=== PATIENT | female | born 1985 | race African-American/Black ===

== ENCOUNTER → 2017-02-07 | Outpatient (CLI) | payer OTHER ==
--- NOTE | 2017-02-08 08:41 | WOMENS IMAGING REPORT ---
EXAM DESCRIPTION: U/S BREAST UNILAT LIMITED COMPLETED DATE/TIME: 02/07/2017 8:12 am REASON FOR STUDY: GALACTORRHEA O92.6 GALACTORRHEA COMPARISON: None. TECHNIQUE: Real-time and static grayscale imaging performed of the right and left breast targeted to the area of clinical concern. Bilateral retroareolar regions were evaluated. Selected color Dopple r images recorded. LIMITATIONS: None. FINDINGS: MASS: No mass identified. Normal glandular tissue. OTHER: No other significant finding. No dilated ducts. No cysts. IMPRESSION: No suspicious findings detected by ultrasound. BIRAD: 1 Negative. RECOMMENDATION: RECOMMENDED FOLLOW-UP: Follow-up as clinically indicated. COMMENT: The [employer] (ACR) has developed recommendations for screening MRI of the breasts in certain patient populations, to be used in conjunction with mammography. Breast MRI s urveillance may be appropriate for women with more than 20% lifetime risk of developing breast cancer as determined by genetic testing, significant family history of the disease, or history of mantle r adiation for Hodgkins Disease. ACR Practice Guidelines 2008. TECHNICAL DOCUMENTATION: JOB ID: [id number] [employer]- All Rights Reserved
== END ==
LOC: WI 07:22
PROVIDERS: ATTEND Physician Assistant
DX: O92.6 Galactorrhea (principal)
CPT/HCPCS: 76642

== ENCOUNTER 2017-02-17 11:19 | Emergency (ER) | payer SELFPAY ==
--- NOTE | 2017-02-17 12:01 | ER Document Report ---
ED GI/ - General Chief Complaint: Abdominal Pain Stated Complaint: ABDOMINAL PAIN Time Seen by Provider: 02/17/17 11:47 Notes: Patient is a 31-year-old female who presents with 1 day of diffuse abdominal cramping. When she arrived to the ER, she went into the bathroom and passed a large clot from her vagina. This relieved her pain. Her menstrual period is normally very regular, but her last menstrual period was early December. She said she took a home test and was negative. Patient seeing her doctor and is getting worked up for PCOS. She denies any current pain, fevers, flank pain, nausea, vomiting, diarrhea, constipation, vaginal bleeding or discharge, rash or back pain. TRAVEL OUTSIDE OF THE [place] IN LAST 30 DAYS: No - Related Data Allergies/Adverse Reactions: No Known Allergies Allergy (Verified 02/17/17 11:21) Past Medical History - General Information source: Patient - Social History Smoking Status: Current Some Day Smoker Chew tobacco use (# tins/day): No Frequency of alcohol use: Occasional Drug Abuse: None Family History: Reviewed & Not Pertinent Patient has suicidal ideation: No Patient has homicidal ideation: No Renal/ Medical History: Denies: Hx Peritoneal Dialysis Review of Systems - Review of Systems Notes: REVIEW OF SYSTEMS: CONSTITUTIONAL: -fevers, -chills EENT: -eye pain, -difficulty swallowing, -nasal congestion CARDIOVASCULAR:-chest pain, -syncope. RESPIRATORY: -cough, -SOB GASTROINTESTINAL: +abdominal pain, -nausea, -vomiting, -diarrhea GENITOURINARY: -dysuria, -hematuria, +vaginal bleeding MUSCULOSKELETAL: -back pain, -neck pain SKIN: -rash or skin lesions. HEMATOLOGIC: -easy bruising or bleeding. LYMPHATIC: -swollen, enlarged glands. NEUROLOGICAL: -altered mental status or loss of consciousness, -headache, - neurologic symptoms PSYCHIATRIC: -anxiety, -depression. ALL OTHER SYSTEMS REVIEWED AND NEGATIVE. Physical Exam - Vital signs Vitals: Temp Pulse Resp BP Pulse Ox 98.8 F 76 24 H 148/91 H 100 02/17/17 11:23 02/17/17 11:23 02/17/17 11:23 02/17/17 11:23 02/17/17 11:23 - Notes Notes: PHYSICAL EXAMINATION: GENERAL: Well-appearing, well-nourished and in no acute distress. HEAD: Atraumatic, normocephalic. EYES: Pupils equal round and reactive to light, extraocular movements intact, sclera anicteric, conjunctiva are normal. ENT: nares patent, oropharynx clear without exudates. Moist mucous membranes. NECK: Normal range of motion, supple without lymphadenopathy LUNGS: Breath sounds clear to auscultation bilaterally and equal. No wheezes rales or rhonchi. HEART: Regular rate and rhythm without murmurs ABDOMEN: Soft, nontender, normoactive bowel sounds. No guarding, no rebound. No masses appreciated. EXTREMITIES: Normal range of motion, no pitting or edema. No cyanosis. NEUROLOGICAL: Cranial nerves grossly intact. Normal speech, normal gait. Normal sensory and motor exams. PSYCH: Normal mood, normal affect. SKIN: Warm, Dry, normal turgor, no rashes or lesions noted. Course - Re-evaluation Re-evalutation: Patient appears well. She said she passed a clot in the ER bathroom and is no longer having any active bleeding or pain. She is not . Urinalysis shows blood with 10-20 WBCs with only a trace leukocyte esterase. She is not having any dysuria, fevers or flank pain and suspect that the small amount of WBCs are reactive from her recent passage of a clot. Symptoms are not typical for ovarian torsion at this time. She has an appointment with her towel distributor this week for further evaluation and treatment. Given strict return precautions and she understands. - Vital Signs Vital signs: Temp Pulse Resp BP Pulse Ox 98.8 F 76 24 H 148/91 H 100 02/17/17 11:23 02/17/17 11:23 02/17/17 11:23 02/17/17 11:23 02/17/17 11:23 - Laboratory Laboratory results interpreted by me: 02/17/17 13:25 Urine Protein 30 H Urine Blood LARGE H Ur Leukocyte Esterase TRACE H Discharge - Discharge Clinical Impression: Vaginal bleeding Condition: Stable Disposition: HOME, SELF-CARE Additional Instructions: You are not . You may take Motrin to help with the crampiness and help stop the bleeding. Follow-up with your towel distributor. VAGINAL BLEEDING: You are having an episode of abnormal bleeding. Causes of abnormal vaginal bleeding can include miscarriage or tubal , tumors such as cancer or benign fibroids, medication effects, or hormone imbalance. Testing can eliminate unsuspected , tumors, or infection as a cause. "Dysfunctional uterine bleeding" is due to hormone imbalance, and is especially common at times when the normal cycle is disturbed -- whether by recent , use of control pills or hormones, or impending menopause. If the bleeding is innocent, most commonly a short course of hormones is given to restore the uterus to normal. Sometimes, the normal menstrual cycle corrects itself naturally. Sometimes , brief hormone therapy, or even a D&C is required. Your physician will advise you. Treatment for anemia may be required if bleeding is severe. You should rest and avoid intercourse until the bleeding is controlled. Call the doctor or return for re-examination if you feel faint, have increasing pain, or have a major increase in the amount of bleeding. FIBROIDS: Fibroids are benign growths or tumors in the uterus. They can cause enlargement of the uterus, irregular bleeding, severe bleeding with periods, and abdominal pain. Anemia may result if periods are heavy. Fibroids tend to grow until menopause, then slowly shrink. If fibroids cause severe symptoms, they can be treated surgically. Call or return if vaginal bleeding or pain becomes severe. NORMAL EXAM AND WORKUP: At this time, except for vaginal bleeding, your examination and workup show no significant abnormality. No significant abnormal physical findings were noted. All laboratory, EKG, and imaging (x-ray, CT scans, ultrasound) studies that were ordered show no significant abnormality. Although your examination and all studies that were ordered showed no significant abnormal finding, there are no examinations and no studies that are 100% accurate. There is always the possibility that some abnormality could exist and not be detected with physical examination or within the limits and capabilities of laboratory and other studies. You should return or follow up as you were instructed on your visit today for further evaluation if your symptoms do not resolve. FOLLOW-UP CARE: If you have been referred to a physician for follow-up care, call the physician s office for an appointment as you were instructed or within the next two days. If you experience worsening or a significant change in your symptoms (very heavy bleeding with large clots of blood, passage of tissue, more severe abdominal / pelvic pain or cramping, feeling faint or severe weakness, fever, etc.), notify the physician immediately or return to the Emergency Department at any time for re-evaluation. OBSTETRIC-GYNECOLOGIC (OB-SPECTRAL SCIENTIST) PHYSICIANS IN [place]: [facility] [address], [place] [phone] [facility] [address], [place] [phone] Forms: Elevated Blood Pressure Referrals: SUHA LARSEN MD [ACTIVE STAFF] - Follow up as needed
[2017-02-17 14:01] LABS: APPEARANCE,URINE CLEAR; BILIRUBIN,URINE NEGATIVE (NEGATIVE); GLUCOSE, URINE NEGATIVE (NEGATIVE); KETONES,URINE NEGATIVE (NEGATIVE); LEUKOCYTE ESTERASE,URINE TRACE (NEGATIVE); NITRITE,URINE NEGATIVE (NEGATIVE); PROTEIN,URINE 30 mg/dL (NEGATIVE); URINE SPECIFIC GRAVITY 1.023; UROBILINOGEN,URINE NEGATIVE mg/dL (<2.0)
[2017-02-17 14:03] LABS: BACTERIA,URINE 2+ /HPF; RBC,URINE TOO NUMEROUS TO CNT /HPF
[2017-02-17] MEDS ORDERED: IBUPROFEN 600 MG TABLET PO ONE (14:03)
[2017-02-17 14:19] VITALS: BP 123/80
== END 2017-02-17 14:15 | disposition home or self-care (01) ==
LOC: ER 11:19
DX: N93.9 Abnormal uterine and vaginal bleeding, unspecified (principal); R10.84 Generalized abdominal pain; F17.200 Nicotine dependence, unspecified, uncomplicated
CPT/HCPCS: 81001; 81025; 99284

== ENCOUNTER 2018-07-01 15:21 | Emergency (ER) | payer BC, OTHER ==
--- NOTE | 2018-07-01 15:58 | ER Document Report ---
ED Medical Screen (RME) - General Chief Complaint: Vaginal Bleeding Stated Complaint: VAGINAL BLEEDING Time Seen by Provider: 07/01/18 15:41 Primary Care Provider: VEDA CASAS MD [Primary Care Provider] - Follow up as needed Mode of Arrival: Ambulatory Information source: Patient Notes: 32-year-old female presented to ED for left-sided abdominal pain and vaginal bleeding. She states on March 13 through March 20 she had a normal. Then on June 07 she was spotting. On June 19 she had 2 extremely large clots and started with light bleeding. She states on the bleeding became more severe and she developed pain on the left side of her abdomen. She states that the bleeding is very heavy at this time. Patient is alert oriented respirations regular and unlabored speaking in full sentences. I have greeted and performed a rapid initial assessment of this patient. A comprehensive ED assessment and evaluation of the patient, analysis of test resu lts and completion of medical decision making process will be conducted by an additional ED providers. TRAVEL OUTSIDE OF THE [place] IN LAST 30 DAYS: No - Related Data Allergies/Adverse Reactions: No Known Allergies Allergy (Verified 07/01/18 15:23) Past Medical History Renal/ Medical History: Denies: Hx Peritoneal Dialysis Physical Exam - Vital signs Vitals: Temp Pulse Resp BP Pulse Ox 98.4 F 93 14 138/86 H 98 07/01/18 15:29 07/01/18 15:29 07/01/18 15:29 07/01/18 15:29 07/01/18 15:29 Course - Vital Signs Vital signs: Temp Pulse Resp BP Pulse Ox 98.4 F 93 14 138/86 H 98 07/01/18 15:29 07/01/18 15:29 07/01/18 15:29 07/01/18 15:29 07/01/18 15:29 Doctor's Discharge - Discharge Referrals: VEDA CASAS MD [Primary Care Provider] - Follow up as needed
[2018-07-01 16:18] LABS: ABSOLUTE EOSINOPHILS # (AUTO) 0.1 10^3/uL (0.0-0.6); ABSOLUTE LYMPHOCYTES (AUTO) 2.7 10^3/uL (0.5-4.7); ABSOLUTE MONOCYTES (AUTO) 0.7 10^3/uL (0.1-1.4); ABSOLUTE NEUT (AUTO) 5.3 10^3/uL (1.7-8.2); BASOPHILS % (AUTO) 0.4 % (0-2); HEMATOCRIT 34.9 % (36.0-47.0); HEMOGLOBIN 11.6 g/dL (12.0-15.5); LYMPHOCYTES % (AUTO) 30.8 % (13-45); MEAN CORPUSCULAR HEMOGLOBIN 26.6 pg (27.0-33.4); MEAN CORPUSCULAR HGB CONC 33.1 g/dL (32.0-36.0); MEAN CORPUSCULAR VOLUME 80 fl (80-97); MONOCYTES % (AUTO) 8.2 % (3-13); PLATELET COUNT 405 10^3/uL (150-450); RED BLOOD COUNT 4.35 10^6/uL (3.72-5.28); RED CELL DISTRIBUTION WIDTH 15.5 % (11.5-14.0); SEGMENTED NEUTROPHILS % (AUTO) 59.6 % (42-78); TOTAL CELLS COUNTED % (AUTO) 100 %; WHITE BLOOD COUNT 8.8 10^3/uL (4.0-10.5)
--- NOTE | 2018-07-01 16:28 | ER Document Report ---
ED General - General Chief Complaint: Vaginal Bleeding Stated Complaint: VAGINAL BLEEDING Time Seen by Provider: 07/01/18 15:41 Primary Care Provider: VEDA CASAS MD [Primary Care Provider] - Follow up as needed Mode of Arrival: Ambulatory Notes: 32-year-old female presented to ED for left-sided abdominal pain and vaginal bleeding. She states on March 13 through March 20 she had a normal menstrual cycle. Then on June 07 she was spotting. On June 19 she had 2 extremely large clots and started with light bleeding. She states on 06/29 the bleeding became more severe and she developed pain on the left side of her abdomen. She states that the bleeding is very heavy at this time. She denies any dizziness or lightheadedness, fevers, shortness of breath or chest pain, numbness or tingling in the extremities, no urinary symptoms, no other complaints. TRAVEL OUTSIDE OF THE [place] IN LAST 30 DAYS: No - Related Data Allergies/Adverse Reactions: No Known Allergies Allergy (Verified 07/01/18 15:23) Past Medical History - General Information source: Patient - Social History Smoking Status: Never Smoker Family History: Reviewed & Not Pertinent Patient has suicidal ideation: No Patient has homicidal ideation: No Renal/ Medical History: Denies: Hx Peritoneal Dialysis Review of Systems - Review of Systems Constitutional: See HPI EENT: No symptoms reported Cardiovascular: See HPI Respiratory: See HPI Gastrointestinal: See HPI Genitourinary: See HPI Female Genitourinary: See HPI Musculoskeletal: No symptoms reported Skin: No symptoms reported Hematologic/Lymphatic: No symptoms reported Neurological/Psychological: No symptoms reported Physical Exam - Vital signs Vitals: Temp Pulse Resp BP Pulse Ox 98.4 F 93 14 138/86 H 98 07/01/18 15:29 07/01/18 15:29 07/01/18 15:29 07/01/18 15:29 07/01/18 15:29 - Notes Notes: PHYSICAL EXAMINATION: Reviewed vital signs and charting by RN GENERAL: Alert, interacts well. No acute distress. HEAD: Normocephalic, atraumatic. EYES: Pupils equal and round. Extraocular movements intact. LUNGS: Clear to auscultation bilaterally, no wheezes, rales, or rhonchi. No respiratory distress. HEART: Regular rate and rhythm. No murmur ABDOMEN: soft, non-tender. Non-distended. Bowel sounds present. no McBurney's point tenderness, no Mares sign. EXTREMITIES: Moves all 4 extremities spontaneously. No edema, No cyanosis. Normal distal neurovascular exam BACK: No CVAT NEUROLOGIC: Oriented and appropriate. Normal speech. PSYCH: Normal affect, normal mood. SKIN: Warm, dry, normal turgor. No rashes or lesions noted. Course - Re-evaluation Re-evalutation: 07/01/18 16:28 Overall well-appearing. Blood work pending, transvaginal ultrasound ordered and pending. 07/01/18 18:24 Transvaginal ultrasound showed a 4.1 cm left ovarian cyst. No other pathology. 07/01/18 18:24 No concern for ovarian torsion or any pathologic bleed. At this time I will giv e patient referral to [facility]. Stable for discharge at this time. - Vital Signs Vital signs: Temp Pulse Resp BP Pulse Ox 98.4 F 93 14 138/86 H 98 07/01/18 15:29 07/01/18 15:29 07/01/18 15:29 07/01/18 15:29 07/01/18 15:29 - Laboratory Result Diagrams: 07/01/18 16:00 07/01/18 16:00 Laboratory results interpreted by me: 07/01/18 07/01/18 07/01/18 15:45 16:00 16:00 Hgb 11.6 L Hct 34.9 L MCH 26.6 L RDW 15.5 H Glucose 113 H Urine Blood LARGE H Discharge - Discharge Clinical Impression: Abnormal vaginal bleeding Condition: Good Disposition: HOME, SELF-CARE Instructions: Vaginal Bleeding ([facility]) Additional Instructions: You were seen today for dysfunctional uterine bleeding. This is when you have vaginal bleeding and abdominal cramping off of your normal menstrual cycle. You have been started on control pills to help regulate your cycle and control your symptoms. 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 Return immediately if you worsening pain, you began bleeding through more than 2 pads per hour for more than 3 hours, you pass out, have persistent vomiting, develop a fever greater than 100.4F, or any other symptoms that are concerning to you. Referrals: VEDA CASAS MD [Primary Care Provider] - Follow up as needed EVA RODRIGUEZ MD [ACTIVE STAFF] - Follow up as needed
[2018-07-01 16:34] LABS: ALANINE AMINOTRANSFERASE 23 U/L (9-52); ALBUMIN 3.8 g/dL (3.5-5.0); ALKALINE PHOSPHATASE 57 U/L (38-126); ANION GAP 7 (5-19); ASPARTATE AMINO TRANSFERASE 16 U/L (14-36); BILIRUBIN,DIRECT 0.2 mg/dL (0.0-0.4); BILIRUBIN,TOTAL 0.3 mg/dL (0.2-1.3); BLOOD UREA NITROGEN 11 mg/dL (7-20); CALCIUM 9.9 mg/dL (8.4-10.2); CARBON DIOXIDE 28 mmol/L (22-30); CHLORIDE 106 mmol/L (98-107); GLUCOSE 113 mg/dL (75-110); POTASSIUM 3.6 mmol/L (3.6-5.0); TOTAL PROTEIN 6.6 g/dL (6.3-8.2)
[2018-07-01 16:46] LABS: APPEARANCE,URINE SLIGHTLY-CLOUDY; BILIRUBIN,URINE NEGATIVE (NEGATIVE); COLOR,URINE YELLOW; GLUCOSE, URINE NEGATIVE (NEGATIVE); KETONES,URINE NEGATIVE (NEGATIVE); LEUKOCYTE ESTERASE,URINE NEGATIVE (NEGATIVE); NITRITE,URINE NEGATIVE (NEGATIVE); PROTEIN,URINE NEGATIVE (NEGATIVE); URINE SPECIFIC GRAVITY 1.016; UROBILINOGEN,URINE NEGATIVE mg/dL (<2.0)
--- NOTE | 2018-07-01 17:23 | RADIOLOGY REPORT (SQ) ---
EXAM DESCRIPTION: U/S NON-OB PELVIS TV W/O DOP COMPLETED DATE/TIME: 07/01/2018 5:11 pm REASON FOR STUDY: pelvic pain vaginal bleeding COMPARISON: None. TECHNIQUE: Dynamic and static grayscale images acquired of the pelvis via transvaginal approach and recorded on PACS. Additional selected color Doppler and spectral images recorded. LIMITATIONS: None. FINDINGS: UTERUS: Contour normal. No mass. ENDOMETRIAL STRIPE: No focal or generalized thickening. No masses. CERVIX: No nabothian cysts. RIGHT OVARY AND DOPPLER: Normal size. No worrisome masses. Normal arterial vascular flow without evid ence for torsion. LEFT OVARY AND DOPPLER: Normal vascular flow. 4.1 x 3.1 x 3.5 cm cyst. FREE FLUID: None noted. OTHER: No other significant finding. MEASUREMENTS: UTERUS: 11 cm ENDOMETRIAL STRIPE: 9.1 mm RIGHT OVARY: 3.8 cm LEFT OVARY: 6.7 cm IMPRESSION: 4.1 cm left ovarian cyst. Otherwise normal. COMMENT: Premenopausal Cysts US Benign-Simple cyst: ? 5 cm: no followup TECHNICAL DOCUMENTATION: JOB ID: [id number] [employer]- All Rights Reserved Rev-07/29 Reading location - IP/workstation name: [email or web address]
[2018-07-01 18:38] VITALS: BP 131/95
== END 2018-07-01 18:37 | disposition home or self-care (01) ==
LOC: ER 15:21
DX: N93.9 Abnormal uterine and vaginal bleeding, unspecified (principal); N83.202 Unspecified ovarian cyst, left side; R10.9 Unspecified abdominal pain
CPT/HCPCS: 36415; 76830; 80053; 81001; 84703; 85025; 99284

== ENCOUNTER → 2018-10-19 | Outpatient (CLI) | payer BC ==
--- NOTE | 2018-10-19 15:47 | RADIOLOGY REPORT (SQ) ---
EXAM DESCRIPTION: HYSTEROSALPINGOGRAM; HYSTERO CATH/INJECTION COMPLETED DATE/TIME: 10/19/2018 2:00 pm REASON FOR STUDY: INFERTILITY COMPARISON: None. PROCEDURE: PRE-PROCEDURE: Procedure was explained to the patient. She was told to expect cramping du ring the procedure, and possible spotting post procedure. PROCEDURE: The cervix was prepped in sterile fashion. Under direct visual inspection, the cervix was cannulated with the hysterosalpingogram catheter and contrast injected. TECHNIQUE: Temporal fluoroscopic images acquired during the procedure stored to PACS. FLUOROSCOPY TIME: LESS THAN 5 SECONDS 19 digital fluoroscopic images saved to PACS. LIMITATIONS: None. FINDINGS: UTERUS: No identified anomalies. No synechia. RIGHT ADNEXA: Normal size fallopian tube. Free spill of contrast into the peritoneal cavity. LEFT ADNEXA: Normal size fallopian tube. Free spill of contrast into the peritoneal cavity. POST PROCEDURE: The patient tolerated the procedure with no adverse effects. IMPRESSION: NORMAL HYSTEROSALPINGOGRAM. COMMENT: Study performed by and interpreted by the radiologist. Study performed by [facility]LL CONT[facility] GRINDER physician. Supervision and interpretation by the radiologist. Quality ID [id number]: Final reports for procedures using fluoroscopy that document radiation exposure arya shaw[place], or exposure time and number of fluorographic images (if radiation exposure indices are not avail able) TECHNICAL DOCUMENTATION: JOB ID: [id number] [employer]- All Rights Reserved Reading location - IP/workstation name: [email or web address]
--- NOTE | 2018-10-19 15:47 | RADIOLOGY REPORT (SQ) ---
EXAM DESCRIPTION: HYSTEROSALPINGOGRAM; HYSTERO CATH/INJECTION COMPLETED DATE/TIME: 10/19/2018 2:00 pm REASON FOR STUDY: INFERTILITY COMPARISON: None. PROCEDURE: PRE-PROCEDURE: Procedure was explained to the patient. She was told to expect cramping du ring the procedure, and possible spotting post procedure. PROCEDURE: The cervix was prepped in sterile fashion. Under direct visual inspection, the cervix was cannulated with the hysterosalpingogram catheter and contrast injected. TECHNIQUE: Temporal fluoroscopic images acquired during the procedure stored to PACS. FLUOROSCOPY TIME: LESS THAN 5 SECONDS 19 digital fluoroscopic images saved to PACS. LIMITATIONS: None. FINDINGS: UTERUS: No identified anomalies. No synechia. RIGHT ADNEXA: Normal size fallopian tube. Free spill of contrast into the peritoneal cavity. LEFT ADNEXA: Normal size fallopian tube. Free spill of contrast into the peritoneal cavity. POST PROCEDURE: The patient tolerated the procedure with no adverse effects. IMPRESSION: NORMAL HYSTEROSALPINGOGRAM. COMMENT: Study performed by and interpreted by the radiologist. Study performed by [facility] CAPTAIN physician. Supervision and interpretation by the radiologist. Quality ID 145: Final reports for procedures using fluoroscopy that document radiation exposure arya [place], or exposure time and number of fluorographic images (if radiation exposure indices are not avail able) TECHNICAL DOCUMENTATION: JOB ID: [id number] [employer]- All Rights Reserved Reading location - IP/workstation name: [email or web address]
== END ==
LOC: RAD 13:21
PROVIDERS: ATTEND Specialist
DX: N97.8 Female infertility of other origin (principal)
CPT/HCPCS: 58340; 74740

== ENCOUNTER 2018-11-13 09:03 | Emergency (ER) | payer BC ==
--- NOTE | 2018-11-13 09:47 | ER Document Report ---
ED Medical Screen (RME) - General Chief Complaint: Abdominal Pain Stated Complaint: ABDOMINAL PAIN Time Seen by Provider: 11/13/18 09:38 Primary Care Provider: RENNY BORRERO MD [Primary Care Provider] - Follow up as needed Notes: Patient is a 33-year-old female presents to the emergency department with a chief complaint of lower abdominal pain. Patient states his pain has been present for 9 days. Patient states she does have a history of ovarian cysts but this pain feels different. Patient reports she is on oral control pills for her ovarian cyst. Patient states she has followed up with Dr. Borrero at [facility] and was recently diagnosed with acute salpingitis and was placed on antibiotics on November 01. Patient states she did finish the dose of antibiotics. Patient reports she is sexually active without concern of STD. Patient states she is currently on her menstrual cycle. Patient states she has taken Midol, Tylenol and Motrin without relief of her lower abdominal p ain. Patient reports nausea without vomiting or diarrhea. TRAVEL OUTSIDE OF THE [place] IN LAST 30 DAYS: No - Related Data Allergies/Adverse Reactions: No Known Allergies Allergy (Verified 11/13/18 09:03) Past Medical History - Social History Chew tobacco use (# tins/day): No Frequency of alcohol use: Occasional Drug Abuse: None Renal/ Medical History: Denies: Hx Peritoneal Dialysis Physical Exam - Vital signs Vitals: Temp Pulse Resp BP Pulse Ox 98.4 F 95 18 130/73 H 99 11/13/18 09:10 11/13/18 09:10 11/13/18 09:10 11/13/18 09:10 11/13/18 09:10 Course - Re-evaluation Re-evalutation: 11/13/18 09:47 I have greeted and performed a rapid initial assessment of this patient. A comprehensive ED assessment and evaluation of the patient, analysis of test results and completion of the medical decision making process will be conducted by additional ED providers. - Vital Signs Vital signs: Temp Pulse Resp BP Pulse Ox 98.4 F 95 18 130/73 H 99 11/13/18 09:10 11/13/18 09:10 11/13/18 09:10 11/13/18 09:10 11/13/18 09:10 Doctor's Discharge - Discharge Referrals: RENNY BORRERO MD [Primary Care Provider] - Follow up as needed
[2018-11-13 09:50] LABS: APPEARANCE,URINE SLIGHTLY-CLOUDY; BILIRUBIN,URINE NEGATIVE (NEGATIVE); COLOR,URINE AMBER; GLUCOSE, URINE NEGATIVE (NEGATIVE); KETONES,URINE NEGATIVE (NEGATIVE); LEUKOCYTE ESTERASE,URINE NEGATIVE (NEGATIVE); NITRITE,URINE NEGATIVE (NEGATIVE); PROTEIN,URINE 30 mg/dL (NEGATIVE); URINE SPECIFIC GRAVITY 1.026; UROBILINOGEN,URINE NEGATIVE mg/dL (<2.0)
[2018-11-13 10:33] LABS: ABSOLUTE BASOPHILS # (AUTO) 0.1 10^3/uL (0.0-0.2); ABSOLUTE EOSINOPHILS # (AUTO) 0.1 10^3/uL (0.0-0.6); ABSOLUTE LYMPHOCYTES (AUTO) 2.2 10^3/uL (0.5-4.7); ABSOLUTE MONOCYTES (AUTO) 0.8 10^3/uL (0.1-1.4); ABSOLUTE NEUT (AUTO) 6.3 10^3/uL (1.7-8.2); BASOPHILS % (AUTO) 1.1 % (0-2); EOSINOPHILS % (AUTO) 0.6 % (0-6); HEMATOCRIT 30.2 % (36.0-47.0); HEMOGLOBIN 9.2 g/dL (12.0-15.5); LYMPHOCYTES % (AUTO) 23.3 % (13-45); MEAN CORPUSCULAR HEMOGLOBIN 19.5 pg (27.0-33.4); MEAN CORPUSCULAR HGB CONC 30.6 g/dL (32.0-36.0); MONOCYTES % (AUTO) 8.7 % (3-13); PLATELET COUNT 808 10^3/uL (150-450); RED BLOOD COUNT 4.73 10^6/uL (3.72-5.28); SEGMENTED NEUTROPHILS % (AUTO) 66.3 % (42-78); TOTAL CELLS COUNTED % (AUTO) 100 %; WHITE BLOOD COUNT 9.4 10^3/uL (4.0-10.5)
[2018-11-13 10:36] LABS: MEAN CORPUSCULAR VOLUME 64 fl (80-97)
[2018-11-13 10:58] LABS: ALBUMIN 3.6 g/dL (3.5-5.0); ALKALINE PHOSPHATASE 69 U/L (38-126); ANION GAP 9 (5-19); ASPARTATE AMINO TRANSFERASE 17 U/L (14-36); BILIRUBIN,DIRECT 0.3 mg/dL (0.0-0.4); BILIRUBIN,TOTAL 0.5 mg/dL (0.2-1.3); BLOOD UREA NITROGEN 12 mg/dL (7-20); CALCIUM 9.5 mg/dL (8.4-10.2); CARBON DIOXIDE 26 mmol/L (22-30); CHLORIDE 105 mmol/L (98-107); GLUCOSE 99 mg/dL (75-110); TOTAL PROTEIN 6.7 g/dL (6.3-8.2)
[2018-11-13 11:03] LABS: ANISOCYTOSIS 2+; HYPOCHROMASIA 2+; OVALOCYTES 2+; POIKILOCYTOSIS 2+
[2018-11-13 11:04] LABS: PLATELET COMMENT INCREASED; TEAR DROP CELLS 1+
--- NOTE | 2018-11-13 11:29 | RADIOLOGY REPORT (SQ) ---
EXAM DESCRIPTION: U/S NON OB PEL TV W/DOPPLER COMPLETED DATE/TIME: 11/13/2018 11:19 am REASON FOR STUDY: pelvic pain, hx. ovarian cysts COMPARISON: 07/01/2018. TECHNIQUE: Dynamic and static grayscale images acquired of the pelvis via transvaginal approach and recorded on PACS. Additional selected color Doppler and spectral images recorded. LIMITATIONS: None. FINDINGS: UTERUS: Contour normal. No mass. ENDOMETRIAL STRIPE: No focal or generalized thickening. No masses. CERVIX: Nabothian cysts. RIGHT OVARY AND DOPPLER: Normal size. 3 cm cyst. No worrisome masses. Normal arterial vascular flow without evidence for torsion. LEFT OVARY AND DOPPLER: Normal size. 5 cm cystic lesion with dilated fluid-filled tubular structure extending from the and next to the uterus. Normal arterial vascular flow without evidence for torsio n. FREE FLUID: None noted. OTHER: No other significant finding. MEASUREMENTS: UTERUS: 4.4 x 6.3 x 10.5 cm. ENDOMETRIAL STRIPE: 1.5 cm. RIGHT OVARY: 3.2 x 3.9 x 4.9 cm. LEFT OVARY: 4.1 x 4.3 x 5.6 cm. IMPRESSION: 1. LEFT SIDE HYDROSALPINX. 5 CM LEFT OVARIAN CYST. 2. 3 CM RIGHT OVARIAN CYST. TECHNICAL DOCUMENTATION: JOB ID: [id number] [employer]- All Rights Reserved Rev-07/29 Reading location - IP/workstation name: [email or web address]
[2018-11-13 12:04] LABS: BACTERIA (WET MOUNT) 3+ BACTERIA SEEN; EPITHELIALS (WET MOUNT) 3+ EPITHELIALS SEEN; RBCS (WET MOUNT) 2+ RBCS SEEN; T.VAGINALIS (WET MOUNT) NO TRICHOMONAS SEEN; WBCS (WET MOUNT) 1+ WBCS SEEN; YEAST (WET MOUNT) NO YEAST SEEN
--- NOTE | 2018-11-13 12:08 | ER Document Report ---
ED General - General Chief Complaint: Abdominal Pain Stated Complaint: ABDOMINAL PAIN Time Seen by Provider: 11/13/18 09:38 Primary Care Provider: RENNY BORRERO MD [ACTIVE STAFF] - Follow up as needed TRAVEL OUTSIDE OF THE [place] IN LAST 30 DAYS: No - HPI Notes: Patient is a 33-year-old female presents emergency department for evaluation. She complains of pelvic pain. She states is been an intermittent issue for some time, but it is been worse over the last 9 days. She has a constant dull ache with occasional sharp and stabbing pains. Nothing seems to make it better or worse. She is currently menstruating. She has been dealing with ovarian cysts, and was diagnosed with salpingitis at one point. She states originally ovarian cysts were found, and in follow-up her hotel operations manager said that her tube looked "blocked." She underwent hysterosalpingogram which was found to be normal. She was subsequently treated for salpingitis, although the patient is unsure as to what antibiotic she received. She states that the pain she has right now is worse than what she is had with her cyst in the past. She denies any vaginal discharge. She states she is not concerned about the possibility of sexually transmitted disease, although she admits she has not had a pelvic exam to screen for anything other than cervical cancer since June. No vaginal discharge. No external sores. No fevers or chills, no nausea or vomiting, no urinary symptoms. - Related Data Allergies/Adverse Reactions: No Known Allergies Allergy (Verified 11/13/18 09:03) Home Medications: OCPs, metformin Past Medical History - General Information source: Patient - Social History Smoking Status: Never Smoker Chew tobacco use (# tins/day): No Frequency of alcohol use: Occasional Drug Abuse: None Family History: Reviewed & Not Pertinent Patient has suicidal ideation: No Patient has homicidal ideation: No Renal/ Medical History: Reports: Hx Ovarian Cysts - PCOS. Denies: Hx Peritoneal Dialysis Review of Systems - Review of Systems Constitutional: No symptoms reported EENT: No symptoms reported Cardiovascular: No symptoms reported Respiratory: No symptoms reported Gastrointestinal: No symptoms reported Genitourinary: No symptoms reported Female Genitourinary: See HPI Musculoskeletal: No symptoms reported Hematologic/Lymphatic: No symptoms reported Physical Exam - Vital signs Vitals: Temp Pulse Resp BP Pulse Ox 98.4 F 95 18 130/73 H 99 09/02/19 09:10 11/13/18 09:10 11/13/18 09:10 11/13/18 09:10 11/13/18 09:10 - Notes Notes: Vital signs reviewed, please refer to chart. Head is normocephalic, atraumatic. Pupils equal round, reactive to light. Neck is supple without meningismus. Heart is regular rate and rhythm. Lungs are clear to auscultation bilaterally. Abdomen is soft, nontender, normoactive bowel sounds throughout. Extremities without cyanosis, clubbing. Posterior calves are nontender. Peripheral pulses are equal. Skin is warm and dry. Patient is awake, alert, neurological exam is nonfocal. DALE Wan was present for pelvic exam. External genitalia is within normal limits. No active lesions that I could appreciate. Speculum exam performed. She had a moderate amount of blood in the vaginal vault. Cervix is nonfriable, no significant discharge, no cervical motion tenderness. Specimens obtained. Course - Re-evaluation Re-evalutation: 11/13/18 12:47 Patient presents emergency department for evaluation. She has had a convoluted gynecological history over the last several months. Her laboratory investigations are unremarkable. Wet prep is negative. GC and Chlamydia are still pending. I spoke with Dr. Hanks, KNITTING TEACHER on-call, regarding ultrasound results. She states that it sounds as if the patient will require surgery at some point, but certainly does not believe that this needs to be done necessarily urgently. I did discuss the possibility of treatment with antibiotics. She states that in the absence of any positive findings on GC chlamydia/trichomonas/wet prep testing, she does not think that they are indicated. I will then send the patient home with prescription strength anti- inflammatories and a short course of [place]. She is to follow-up with the hotel operations manager office tomorrow. She is to return to the ED with worsening or new concerning symptoms of any sort. - Vital Signs Vital signs: Temp Pulse Resp BP Pulse Ox 98.4 F 95 18 130/73 H 99 11/13/18 09:10 11/13/18 09:10 11/13/18 09:10 11/13/18 09:10 11/13/18 09:10 - Laboratory Result Diagrams: 11/13/18 10:17 11/13/18 10:17 Laboratory results interpreted by me: 11/13/18 11/13/18 09:35 10:17 Hgb 9.2 L Hct 30.2 L MCV 64 L MCH 19.5 L MCHC 30.6 L RDW 19.0 H Plt Count 808 H Urine Protein 30 H Urine Blood MODERATE H - Diagnostic Test Radiology reviewed: Reports reviewed Radiology results interpreted by me: 11/13/18 12:07 Transvaginal US 11/13/18 09:44 IMPRESSION: 1. LEFT SIDE HYDROSALPINX. 5 CM LEFT OVARIAN CYST. 2. 3 CM RIGHT OVARIAN CYST. Discharge - Discharge Clinical Impression: Hydrosalpinx, Bilateral ovarian cysts Condition: Stable Disposition: HOME, SELF-CARE Instructions: Pelvic Pain ([facility]), Ovarian Cyst ([facility]) Additional Instructions: Follow-up with your hotel operations manager office tomorrow. Take medications as prescribed for pain. Return to the emergency department with worsening or new concerning symptoms of any sort. Referrals: RENNY BORRERO MD [ACTIVE STAFF] - Follow up as needed
[2018-11-13 13:11] VITALS: BP 127/70
[2018-11-13 13:28] LABS: CHLAM PCR NOT DETECTED (NOT DETECT)
[2018-11-14 16:42] LABS: PATH REVIEW PATHOLOGIST REVIEWED
== END 2018-11-13 13:12 | disposition home or self-care (01) ==
LOC: ER 09:03
DX: N83.202 Unspecified ovarian cyst, left side (principal); N83.201 Unspecified ovarian cyst, right side; N70.11 Chronic salpingitis; R10.9 Unspecified abdominal pain; R10.2 Pelvic and perineal pain
CPT/HCPCS: 36415; 76830; 80053; 81001; 81025; 85025; 87210; 87491; 87591; 93976; 99284

== ENCOUNTER 2019-10-30 16:29 | Emergency (ER) | payer BC ==
--- NOTE | 2019-10-30 17:30 | ER Document Report ---
ED Medical Screen (RME) - General Chief Complaint: Arm Pain Stated Complaint: LEFT ARM PAIN Time Seen by Provider: 10/30/19 17:26 Primary Care Provider: LIBRADO THOMPSON PA-C [Primary Care Provider] - Follow up as needed Information source: Patient Notes: HPI; 34-year-old female history of prediabetes presents to the emergency room complaining of intermittent sharp midsternal chest pain off and on for the past 2 months. States it has been getting progressively worse for the past 2 to 3 days. Is now having numbness into her left arm which she states starts at the lower part of her neck and radiates into her left arm. Denies any trauma or injury. States has tried taking some leftover Flexeril and naproxen without relief. Denies any nausea, vomiting. No medications today for symptoms. PE: Alert and oriented x3. Negative fast exam. Healthcare Business Analyst strength equal and adequate bilaterally. Full sensation to left arm. There is pain and muscle spasms noted to the left trapezius muscle. Chest nontender to palpation. Lungs: Clear to auscultation without rales, rhonchi, wheezes. Heart: Regular rate rhythm without murmurs, rubs, gallops. I have greeted and performed a rapid initial assessment of this patient. A comprehensive ED assessment and evaluation of the patient, analysis of test results and completion of the medical decision making process will be conducted by additional ED providers. I have specifically instructed the patient or family members with the patient to immediately return to any nursing staff should anything change in the patient's condition or with their chief complaint. TRAVEL OUTSIDE OF THE [place] IN LAST 30 DAYS: No - Related Data Allergies/Adverse Reactions: No Known Allergies Allergy (Verified 10/30/19 17:22) Home Medications: metformin, ferrous sulfate, oral BCP Past Medical History - Social History Chew tobacco use (# tins/day): No Frequency of alcohol use: Occasional Drug Abuse: None Endocrine Medical History: Reports: Hx Diabetes Mellitus Type 2 - pre DM Renal/ Medical History: Reports: Hx Ovarian Cysts - PCOS. Denies: Hx Peritoneal Dialysis Physical Exam - Vital signs Vitals: Temp Pulse Resp BP Pulse Ox 98.6 F 98 18 136/83 H 100 10/30/19 16:52 10/30/19 16:52 10/30/19 16:52 10/30/19 16:52 10/30/19 16:52 Course - Vital Signs Vital signs: Temp Pulse Resp BP Pulse Ox 98.6 F 98 18 136/83 H 100 10/30/19 16:52 10/30/19 16:52 10/30/19 16:52 10/30/19 16:52 10/30/19 16:52 Doctor's Discharge - Discharge Referrals: LIBRADO THOMPSON PA-C [Primary Care Provider] - Follow up as needed
--- NOTE | 2019-10-30 17:57 | RADIOLOGY REPORT (SQ) ---
EXAM DESCRIPTION: CHEST 2 VIEWS IMAGES COMPLETED DATE/TIME: 10/30/2019 5:45 pm REASON FOR STUDY: chest pain COMPARISON: None. EXAM PARAMETERS: NUMBER OF VIEWS: two views TECHNIQUE: Digital Frontal and Lateral radiographic views of the chest acquired. RADIATION DOSE: NA LIMITATIONS: none FINDINGS: LUNGS AND PLEURA: No opacities, masses or pneumothorax. No pleural effusion. MEDIASTINUM AND HILAR STRUCTURES: No masses or contour abnormalities. HEART AND VASCULAR STRUCTURES: Heart normal size. No evidence for failure. BONES: No acute findings. HARDWARE: None in the chest. OTHER: No other significant finding. IMPRESSION: NO ACUTE RADIOGRAPHIC FINDING IN THE CHEST. TECHNICAL DOCUMENTATION: JOB ID: [id number] 2010 [employer]- All Rights Reserved Reading location - IP/workstation name: [email or web address]
--- NOTE | 2019-10-30 18:18 | RADIOLOGY REPORT (SQ) ---
EXAM DESCRIPTION: CT CERVICAL SPINE WITHOUT IMAGES COMPLETED DATE/TIME: 10/30/2019 5:53 pm REASON FOR STUDY: Left arm numbness COMPARISON: None. TECHNIQUE: Axial images acquired through the cervical spine without intravenous contrast. Images re viewed with lung, soft tissue and bone windows. Reconstructed coronal and sagittal MPR images review ed. Images stored on PACS. All CT scanners at this facility use dose modulation, iterative reconstruction, and/or weight based d osing when appropriate to reduce radiation dose to as low as reasonably achievable (ALARA). [facility]: Dose Right [facility]: CareDose [facility]: Dose Right [facility]: Teradose 4D [facility]: [employer] RADIATION DOSE: CT Rad equipment meets quality standard of care and radiation dose reduction techniq ues were employed. CTDIvol: 23.6 mGy. DLP: 506 mGy-cm. mGy. LIMITATIONS: None. FINDINGS: ALIGNMENT: Anatomic. MINERALIZATION: Normal. VERTEBRAL BODIES: No fractures or dislocation. DISCS: Mild disc narrowing at C6-7 with small marginal osteophytes. FACETS, LATERAL MASSES, POSTERIOR ELEMENTS: No fractures. No dislocation. No acute findings. HARDWARE: None in the spine. VISUALIZED RIBS: No fractures. LUNG APICES AND SOFT TISSUES: No significant or acute findings. OTHER: No other significant finding. IMPRESSION: Limited degenerative disc changes and spondylosis. No acute finding. TECHNICAL DOCUMENTATION: JOB ID: [id number] Quality ID # [id number]: Final reports with documentation of one or more dose reduction techniques (e.g., Au tomated exposure control, adjustment of the mA and/or kV according to patient size, use of iterative reconstruction technique) 2010 [employer]- All Rights Reserved Reading location - IP/workstation name: [email or web address]
[2019-10-30 18:29] LABS: ABSOLUTE EOSINOPHILS # (AUTO) 0.1 10^3/uL (0.0-0.6); ABSOLUTE LYMPHOCYTES (AUTO) 3.2 10^3/uL (0.5-4.7); ABSOLUTE MONOCYTES (AUTO) 0.6 10^3/uL (0.1-1.4); ABSOLUTE NEUT (AUTO) 6.5 10^3/uL (1.7-8.2); BASOPHILS % (AUTO) 0.2 % (0-2); HEMATOCRIT 40.5 % (36.0-47.0); HEMOGLOBIN 13.5 g/dL (12.0-15.5); LYMPHOCYTES % (AUTO) 30.5 % (13-45); MEAN CORPUSCULAR HEMOGLOBIN 27.7 pg (27.0-33.4); MEAN CORPUSCULAR HGB CONC 33.4 g/dL (32.0-36.0); MEAN CORPUSCULAR VOLUME 83 fl (80-97); MONOCYTES % (AUTO) 5.7 % (3-13); PLATELET COUNT 412 10^3/uL (150-450); RED BLOOD COUNT 4.89 10^6/uL (3.72-5.28); SEGMENTED NEUTROPHILS % (AUTO) 62.6 % (42-78); TOTAL CELLS COUNTED % (AUTO) 100 %; WHITE BLOOD COUNT 10.3 10^3/uL (4.0-10.5)
[2019-10-30 18:46] LABS: ALBUMIN 3.9 g/dL (3.5-5.0); ALKALINE PHOSPHATASE 51 U/L (38-126); ANION GAP 9 (5-19); ASPARTATE AMINO TRANSFERASE 28 U/L (14-36); BILIRUBIN,TOTAL 0.5 mg/dL (0.2-1.3); BLOOD UREA NITROGEN 11 mg/dL (7-20); CALCIUM 9.5 mg/dL (8.4-10.2); CARBON DIOXIDE 27 mmol/L (22-30); CHLORIDE 104 mmol/L (98-107); CREATINE KINASE 102 U/L (30-135); GLUCOSE 129 mg/dL (75-110); TOTAL PROTEIN 6.8 g/dL (6.3-8.2)
[2019-10-30 19:05] LABS: CREATINE KINASE MB 0.25 ng/mL (<4.55)
[2019-10-30 19:09] LABS: TROPONIN I < 0.012 ng/mL
--- NOTE | 2019-10-30 19:31 | EKG REPORT ---
SEVERITY:- NORMAL ECG - SINUS RHYTHM : Confirmed by: Jodi Montalvo 30-Oct-2019 19:30:59
[2019-10-30 21:41] VITALS: BP 130/80
[2019-10-30] MEDS ORDERED: KETOROLAC TROMETHAMINE 60 MG/2 ML SDV IM ONE (22:08)
--- NOTE | 2019-10-30 22:08 | ER Document Report ---
ED General - General Chief Complaint: Arm Pain Stated Complaint: LEFT ARM PAIN Time Seen by Provider: 10/30/19 17:26 Primary Care Provider: LIBRADO THOMPSON PA-C [Primary Care Provider] - Follow up as needed Notes: CHIEF COMPLAINT: Neck and arm pain for 3 days, intermittent chest pain HPI: 34-year-old female primarily presenting tonight for 3 days of intermittent neck and arm pain. Hurts to lift the arms or rotate the head and neck. Pain starts in the cervical neck region radiates through the bilateral trapezius region but more on the left and occasionally down the left arm especially with movement of the head to the left or elevation of the left arm. Has taken no medications for symptoms denies acute trauma. Patient also relates that she has had intermittent midsternal type chest discomfort that she is vague in her description of that seems to come and go for several minutes at a time most recently was 2 weeks ago but states over the last several weeks she has noticed that so her mother wanted her to come in tonight as well for that to be evaluated. Does not have any chest discomfort tonight ROS: See HPI - all other systems were reviewed and are otherwise negative Constitutional: no fever Eyes: no drainage, no blurred vision ENT: no runny nose, no sore throat Cardiovascular: Positive chest pain Resp: no SOB, no cough GI: no vomiting, no diarrhea, no abdominal pain : no dysuria Integumentary: no rash Allergy: no hives Musculoskeletal: Positive extremity pain or swelling Neurological: no numbness/tingling, no weakness MEDICATIONS: I agree with the patient medications as charted by the RN. ALLERGIES: I agree with the allergies as charted by the RN. PAST MEDICAL HISTORY/PAST SURGICAL HISTORY: Reviewed and agree as charted by RN. SOCIAL HISTORY: Reviewed and agree as charted by RN. FAMILY HISTORY: No significant familial comorbid conditions directly related to patient complaint EXAM: Reviewed vital signs as charted by RN. CONSTITUTIONAL: Alert and oriented and responds appropriately to questions. Well-appearing; well-nourished HEAD: Normocephalic; atraumatic EYES: PERRL; Conjunctivae clear, sclerae non-icteric ENT: normal nose; no rhinorrhea; moist mucous membranes; pharynx without lesions noted, no uvula edema or deviation, no tonsillar hypertrophy, phonation normal NECK: Supple without meningismus; tenderness in the cervical paraspinous musculature bilaterally more prominent in the left trapezius region; no cervical lymphadenopathy, no masses CARD: RRR; no murmurs, no clicks, no rubs, no gallops; symmetric distal pulses RESP: Normal chest excursion without splinting or tachypnea; breath sounds clear and equal bilaterally; no wheezes, no rhonchi, no rales, pulse oximetry 99% on room air not hypoxic ABD/GI: Normal bowel sounds; non-distended; soft, non-tender, no rebound, no guarding; no palpable organomegaly or masses. BACK: The back appears normal and is non-tender to palpation, there is no CVA tenderness EXT: Normal ROM in all joints; non-tender to palpation; no cyanosis, no effusions, no edema SKIN: Normal color for age and race; warm; dry; good turgor; no acute lesions noted NEURO: Moves all extremities equally; Motor and sensory function intact. Strength equal 5/5 bilateral upper extremities. Sensation intact and equal bilateral upper extremities. PSYCH: The patient's mood and manner are appropriate. Grooming and personal hygi martina are appropriate. MDM: 34-year-old female presenting for cervical radiculopathy over the last [address] on anti-inflammatories and a muscle relaxer. Refer to orthopedics. She has had intermittent chest discomfort that she is vague in her description of over the last 1 to 2 months, has not had the discomfort in several weeks. Her initial screening labs ordered in the triage process were negative for acute findings. Her EKG is normal sinus rhythm with a ventricular rate of 94 with a ND of 148. Interpreted by emergency department physicians, no other ectopy. Will refer for outpatient cardiology evaluation TRAVEL OUTSIDE OF THE [place] IN LAST 30 DAYS: No - Related Data Allergies/Adverse Reactions: No Known Allergies Allergy (Verified 10/30/19 17:22) Home Medications: metformin, ferrous sulfate, oral BCP Past Medical History - General Information source: Patient - Social History Smoking Status: Never Smoker Chew tobacco use (# tins/day): No Frequency of alcohol use: Occasional Drug Abuse: None Family History: Reviewed & Not Pertinent Patient has homicidal ideation: No Endocrine Medical History: Reports: Hx Diabetes Mellitus Type 2 - pre DM Renal/ Medical History: Reports: Hx Ovarian Cysts - PCOS. Denies: Hx Peritoneal Dialysis Physical Exam - Vital signs Vitals: Temp Pulse Resp BP Pulse Ox 98.6 F 98 18 136/83 H 100 10/30/19 16:52 10/30/19 16:52 10/30/19 16:52 10/30/19 16:52 10/30/19 16:52 Course - Vital Signs Vital signs: Temp Pulse Resp BP Pulse Ox 98.4 F 86 18 130/80 H 100 10/30/19 21:36 10/30/19 21:36 10/30/19 16:52 10/30/19 21:36 10/30/19 21:36 - Laboratory Result Diagrams: 10/30/19 18:10 10/30/19 18:10 Laboratory results interpreted by me: 10/30/19 18:10 Glucose 129 H Discharge - Discharge Clinical Impression: Cervical radicular pain Chest pain Qualifiers: Chest pain type: unspecified Qualified Code(s): R07.9 - Chest pain, unspecified Condition: Stable Disposition: HOME, SELF-CARE Instructions: Radiculopathy ([facility]), Chest Pain of Unclear Cause ([facility]) Additional Instructions: Take the medications as prescribed no driving if taking muscle relaxers. F ollow-up with orthopedics regarding the pinched nerve in the neck. Follow-up with cardiology for outpatient stress test for evaluation of the chest discomfort you have been having in the last few weeks. If you develop worsening or more persistent chest pain return for reevaluation but your lab work evaluation tonight did not show acute abnormalities Prescriptions: Cyclobenzaprine HCl [Flexeril 10 mg Tablet] 10 mg PO TIDP PRN #15 tab PRN Reason: Diclofenac Sodium [Voltaren 50 Mg Tablet.] 50 mg PO BID #20 tablet. Referrals: LIBRADO THOMPSON PA-C [Primary Care Provider] - Follow up as needed MICHAEL OLIVIA MD [ACTIVE STAFF] - Follow up as needed LARON IRWIN MD [ACTIVE STAFF] - Follow up as needed
== END 2019-10-30 22:20 | disposition home or self-care (01) ==
LOC: ER 16:29
DX: M54.12 Radiculopathy, cervical region (principal); R07.9 Chest pain, unspecified; M79.602 Pain in left arm; M54.2 Cervicalgia; M54.6 Pain in thoracic spine; E11.9 Type 2 diabetes mellitus without complications
CPT/HCPCS: 93005; 99285; 96372; 36415; 82553; 82550; 84703; 85025; 80053; 84484; 71046; 72125; 93010; J1885

== ENCOUNTER 2020-02-23 16:58 | Emergency (ER) | payer SELFPAY ==
[2020-02-23] MEDS ORDERED: KETOROLAC TROMETHAMINE 60 MG/2 ML SDV IM ONE (17:39)
--- NOTE | 2020-02-23 17:47 | ER Document Report ---
ED Extremity Problem, Upper - General Chief Complaint: Shoulder Pain Stated Complaint: SHOULDER PAIN,ARM PAIN Time Seen by Provider: 02/23/20 17:35 Primary Care Provider: ROBERTH KURTZ MD [ACTIVE STAFF] - Follow up as needed LIBRADO THOMPSON PA-C [PHYSICIAN AIR BATTLE MANAGER] - Follow up as needed TRAVEL OUTSIDE OF THE [place] IN LAST 30 DAYS: No - HPI Notes: Patient is a 34-year-old female with no medical history who presents with left cervical radiculopathy and shoulder pain. Patient was seen back in October and diagnosed with cervical radiculopathy. She was treated with muscle relaxers and NSAIDs which she states helped her pain. She states her pain returned last night and she is requesting pain relief. She denies any injury or new pain. She was recommended to follow-up with orthopedics for further evaluation back in October but has not followed up due to lack of insurance. She denies any chest pain, shortness of breath, and vomiting. - Related Data Allergies/Adverse Reactions: No Known Allergies Allergy (Verified 10/30/19 17:22) Past Medical History - General Information source: Patient - Social History Smoking Status: Unknown if Ever Smoked Family History: Reviewed & Not Pertinent Endocrine Medical History: Reports: Hx Diabetes Mellitus Type 2 - pre DM Renal/ Medical History: Reports: Hx Ovarian Cysts - PCOS. Denies: Hx Bijal toneal Dialysis Review of Systems - Review of Systems Constitutional: No symptoms reported EENT: No symptoms reported Cardiovascular: No symptoms reported Respiratory: No symptoms reported Gastrointestinal: No symptoms reported Genitourinary: No symptoms reported Female Genitourinary: No symptoms reported Musculoskeletal: See HPI Skin: No symptoms reported Hematologic/Lymphatic: No symptoms reported Neurological/Psychological: No symptoms reported Physical Exam - Vital signs Vitals: Temp Pulse Resp BP Pulse Ox 98.1 F 104 H 20 149/108 H 99 02/23/20 17:26 02/23/20 17:26 02/23/20 17:26 02/23/20 17:26 02/23/20 17:26 - Notes Notes: PHYSICAL EXAMINATION: VITALS: Vitals reviewed and within normal limits. GENERAL: Well-appearing, well-nourished and in no acute distress. HEAD: Atraumatic, normocephalic. NECK: Normal range of motion, supple without lymphadenopathy. No midline tenderness. Tenderness in the cervical paraspinous musculature bilaterally more prominent in the left trapezius region. LUNGS: Breath sounds clear to auscultation bilaterally and equal. No wheezes, rales, or rhonchi. HEART: Regular, rate, and rhythm without murmurs. EXTREMITIES: Left shoulder is nontender. Normal range of motion, no pitting or edema. No cyanosis. BACK: No midline tenderness. Able to ambulate without difficulty. NEUROLOGICAL: No focal neurological deficits. Moves all extremities spontaneously and on command. PSYCH: Normal mood, normal affect. SKIN: Warm, Dry, normal turgor, no rashes or lesions noted. Course - Re-evaluation Re-evalutation: Patient presents with signs and symptoms most consistent with a cervical nerve root impingement likely at C6-7. Patient presents with pain into the shoulder, neck, and radiation of pain into the extremity. On neurologic exam patient has 5 out of 5 biceps and triceps strength. Motor and sensory distribution incl uding against resistance on motor testing is noted to be normal. 2+ radial pulse and capillary refill is less than 1 second in all digits. Patient has had improvement of symptoms after receiving analgesia here in the emergency department. Advised supportive pillow for sleep at night, have treated with NSAIDs, and muscle relaxers at night for pain that prevents sleep. At this time will discharge with return precautions and follow-up recommendations. Verbal discharge instructions given a the bedside and opportunity for questions given. Medication warnings reviewed. Patient is in agreement with this plan and has verbalized understanding of return precautions and the need for primary care follow-up in the next 24-72 hours. - Vital Signs Vital signs: Temp Pulse Resp BP Pulse Ox 98.7 F 70 20 138/76 H 100 02/23/20 18:08 02/23/20 18:08 02/23/20 18:08 02/23/20 18:08 02/23/20 18:08 - Laboratory Results Critical Laboratory Results Reviewed: No Critical Results - Radiology Results Critical Radiology Results Reviewed: No Critical Results Discharge - Discharge Clinical Impression: Cervical radiculopathy Left shoulder pain Qualifiers: Chronicity: chronic Qualified Code(s): M25.512 - Pain in left shoulder Condition: Stable Disposition: HOME, SELF-CARE Additional Instructions: Radiculopathy Radiculopathy is irritation of a nerve. Sometimes this is called "pinched nerve." The pain can be sharp and stabbing, constant and dull, or burning in nature. The pain can occur in any area of the chest, shoulders, or arms. Sometimes the pain is provoked by coughing or moving. Radiculopathy can be caused by physical pressure on a nerve, such as a herniated disc or swollen joint in the spine. It can also be caused by viral infections within the nerve or by nerve damage due to diabetes or blood vessel disease. Radicular pain is treated with antiinflammatory medicine. Injections may help resistant cases, if we can identify a single nerve that's causing the pain. Surgery is usually not necessary. If symptoms do not improve with time, you may need additional testing, such as an MRI or EMG (electromyogram). Return if there is local weakness or numbness, shortness of breath, increasing pain, or other new symptoms. Your pain is related to impingement one of your cervical nerve roots and will take 6-8 weeks completely resolved. For your pain: Take ibuprofen 600 mg and acetaminophen 1000 mg every 6 hours together as needed for pain. In addition to this, purchased the product that is sold [id number] cold Aspercreme with lidocaine. Apply to the affected area per bottle instructions. You should also apply heat to the area regularly using an electric heating plant pad. Return to the emergency department immediately if you develop weakness, loss of sensation, chest pain, shortness of breath, have worsening of your symptoms, or any other symptoms that are worrisome to you. Prescriptions: Cyclobenzaprine HCl [Flexeril 10 mg Tablet] 10 mg PO TID PRN #15 tablet PRN Reason: Diclofenac Sodium [Voltaren 50 mg Tablet.] 50 mg PO BID PRN #20 tablet. PRN Reason: Forms: Return to Work Referrals: LIBRADO THOMPSON PA-C [PHYSICIAN AIR BATTLE MANAGER] - Follow up as needed ROBERTH KURTZ MD [ACTIVE STAFF] - Follow up as needed
[2020-02-23 18:09] VITALS: BP 138/76
== END 2020-02-23 18:08 | disposition home or self-care (01) ==
LOC: ER 16:58
DX: G89.29 Other chronic pain (principal); M25.512 Pain in left shoulder; M54.12 Radiculopathy, cervical region
CPT/HCPCS: 99284; 96372; J1885

== ENCOUNTER 2020-02-23 22:13 | Emergency (ER) | payer SELFPAY ==
[2020-02-23] MEDS ORDERED: DEXAMETHASONE SOD PHOS INJ 10 MG/1 ML VIAL IM ONE (23:44)
[2020-02-23] MEDS ORDERED: OXYCODONE-ACETAMINOPHEN 5-325 MG TABLET PO ONE (23:44)
--- NOTE | 2020-02-23 23:50 | ER Document Report ---
ED Extremity Problem, Upper - General Chief Complaint: Shoulder Pain Stated Complaint: BILATERAL SHOULDER/ARM PAIN Time Seen by Provider: 02/23/20 23:28 Primary Care Provider: ROBERTH KURTZ MD [ACTIVE STAFF] - Follow up as needed STEFFI OG DO [ACTIVE STAFF] - Follow up as needed TRAVEL OUTSIDE OF THE [place] IN LAST 30 DAYS: No - HPI Notes: Patient is a 34-year-old female with no medical history who presents with bilateral cervical radiculopathy and shoulder pain, left greater than right. She was seen in the ED earlier today and was given 60mg IM toradol and prescript ions for flexeril and voltaren as these medications have worked for her in the past. Patient has returned to the ED as she was unable to pepper picker her prescriptions before the pharmacy closed and she is in too much pain to sleep tonight. She denies any new injury. She denies any chest pain, shortness of breath, and vomiting. - Related Data Allergies/Adverse Reactions: No Known Allergies Allergy (Verified 10/30/19 17:22) Past Medical History - General Information source: Patient - Social History Smoking Status: Never Smoker Chew tobacco use (# tins/day): No Frequency of alcohol use: None Drug Abuse: None Family History: Reviewed & Not Pertinent Endocrine Medical History: Reports: Hx Diabetes Mellitus Type 2 - pre DM Renal/ Medical History: Reports: Hx Ovarian Cysts - PCOS. Denies: Hx Peritoneal Dialysis Physical Exam - Vital signs Vitals: Temp Pulse Resp BP Pulse Ox 98.2 F 111 H 16 151/95 H 100 02/23/20 22:18 02/23/20 22:18 02/23/20 22:18 02/23/20 22:18 02/23/20 22:18 - Notes Notes: PHYSICAL EXAMINATION: VITALS: Vitals reviewed and within normal limits. GENERAL: Well-appearing, well-nourished. Patient is tearful and appears to be in mild distress. HEAD: Atraumatic, normocephalic. NECK: Normal range of motion, supple without lymphadenopathy. No midline tenderness. Tenderness in the cervical paraspinous musculature bilaterally more prominent in the left trapezius region. LUNGS: Breath sounds clear to auscultation bilaterally and equal. No wheezes, rales, or rhonchi. HEART: Regular, rate, and rhythm without murmurs. EXTREMITIES: Bilateral shoulders are nontender. Normal range of motion, no pitting or edema. No cyanosis. BACK: No midline tenderness. Able to ambulate without difficulty. NEUROLOGICAL: No focal neurological deficits. Moves all extremities spontaneously and on command. PSYCH: Normal mood, normal affect. SKIN: Warm, Dry, normal turgor, no rashes or lesions noted. Course - Re-evaluation Re-evalutation: Patient is a 34-year-old female who presents with bilateral cervical radiculopathy and shoulder pain. She was seen in the ED earlier today and was given scripts for medications that helped in the past, however, she was unable to make it to the pharmacy on time to pick them up. Patient is tachycardic with a HR of 111 and hypertensive with a BP of 151/95. On exam, patient is tearful and in mild distress with tenderness in the cervical paraspinous musculature bilaterally more prominent in the left trapezius region. Patient given 10mg PO percocet and 10mg IM decadron for pain relief. No imaging done today as patient had a CT scan in October 2019. Patient instructed to pepper picker her prescriptions in the morning. Return precautions and follow-up instructions given. Patient understands and is in agreement with the plan. Patient will be discharged home. - Vital Signs Vital signs: Temp Pulse Resp BP Pulse Ox 98.0 F 105 H 18 144/76 H 99 02/24/20 00:00 02/24/20 00:00 02/24/20 00:00 02/24/20 00:00 02/24/20 00:00 - Laboratory Results Critical Laboratory Results Reviewed: No Critical Results - Radiology Results Critical Radiology Results Reviewed: No Critical Results Discharge - Discharge Clinical Impression: Cervical radiculopathy Left shoulder pain Qualifiers: Chronicity: chronic Qualified Code(s): M25.512 - Pain in left shoulder Condition: Stable Disposition: HOME, SELF-CARE Additional Instructions: Your pain is related to impingement one of your cervical nerve roots and will take 6-8 weeks completely resolved. For your pain: Take ibuprofen 600 mg and acetaminophen 1000 mg every 6 hours together as needed for pain. In addition to this, purchased the product that is sold [id number] cold Aspercreme with lidocaine. Apply to the affected area per bottle instructions. You should also apply heat to the area regularly using an electric heating plant pad. Return to the emergency department immediately if you develop weakness, loss of sensation, chest pain, shortness of breath, have worsening of your symptoms, or any other symptoms that are worrisome to you. Referrals: ROBERTH KURTZ MD [ACTIVE STAFF] - Follow up as needed STEFFI OG DO [ACTIVE STAFF] - Follow up as needed
[2020-02-24 00:01] VITALS: BP 144/76
== END 2020-02-24 | disposition home or self-care (01) ==
LOC: ER 22:13
DX: G89.29 Other chronic pain (principal); M25.512 Pain in left shoulder; M54.12 Radiculopathy, cervical region; M25.511 Pain in right shoulder
CPT/HCPCS: 99284; 96372; J1100